=== PATIENT | male | born 1960 | race Caucasian/White ===

== ENCOUNTER → 2016-03-21 | Outpatient (CLI) | payer OTHER ==
--- NOTE | 2016-03-21 13:02 | MR ---
MR lumbar spine wo con Low back pain Multiplanar, multiecho imaging of the lumbar spine was obtained without contrast on a 3 Anne magnet. REFERENCE:None. FINDINGS: Paraspinal soft tissues are normal. Vertebral body height and alignment are maintained. No fractures are seen. Marrow signal is somewhat mottled. This likely represents distribution of red and yellow marrow elements. Cord signal is normal. The conus ends normally at the level of the superior endplate of L1. At T12-L1, there is mild disc space loss. The intervertebral foramina 1 well-maintained. There is no significant compressive discopathy. The facets are unremarkable. At L1-2, there is disc space loss. The intervertebral foramina appear well maintained. There is a dif fuse disc displacement. There is mild hypertrophic change within the facets. There is mild central ca nal compromise. At L2-3, the intervertebral foramina are well maintained. There is no significant compressive discopa thy. There is hypertrophic change within the facets. There is mild trefoiling of the thecal sac. At L3-4, there is disc space loss. There is a diffuse disc displacement. The intervertebral foramina appear well maintained. There is hypertrophic change and capsulitis within the facets. There is mild central canal compromise. At L4-5, there is disc space loss. The intervertebral foramina are well maintained. There is a diffus e disc protrusion. There are hypertrophic changes within the facets. There is moderate central canal compromise. At L5-S1, there is disc space loss. The intervertebral foramina appear well maintained. There is a br oad-based disc protrusion there hypertrophic changes within the facets. IMPRESSION: 1. DIFFUSE DEGENERATIVE DISC DISEASE AND FACET ARTHROPATHY. 2. VARYING DEGREES OF CENTRAL CANAL COMPROMISE, MOST MARKED AT L4-5.
== END | disposition home or self-care (01) ==
LOC: RADMRIMAIN 11:04
PROVIDERS: ATTEND Family Medicine
DX: M51.36 Other intervertebral disc degeneration, lumbar region (principal); M46.96 Unspecified inflammatory spondylopathy, lumbar region
CPT/HCPCS: 72148